=== PATIENT | male | born 1990 | race Caucasian/White ===

== ENCOUNTER 2017-08-30 13:11 | Emergency (ER) | payer SELFPAY ==
[~2017-08-30] VITALS: Ht 188 cm; Wt 82.6 kg
[~2017-08-30 13:11] MED LIST: AMOXICILLIN500 MG PO; AUGMENTIN875 MG PO; ULTRAM50 MG PO
[2017-08-30 13:52] LABS: BASOPHIL COUNT 0.1 K/uL (0-0.1); EOSINOPHIL COUNT 0.3 K/uL (0-0.3); HEMATOCRIT 42.4 % (38.0-50.0); IMMATURE GRANULOCYTE (%) 0.3 % (0.0-0.7); INSTRUMENT ABS NEUTROPHIL CT 3.7 K/uL; LYMPHOCYTE COUNT 2.6 K/uL (1.0-2.8); MCV 88.3 FL (86-99); MEAN PLAT.VOLUME 9.3 uM^3 (9.0-12.4); MONOCYTE (%) 8.8 % (3-12); MONOCYTE COUNT 0.6 K/uL (0-0.8); NEUTROPHIL (%) 51.1 % (45-76); NEUTROPHIL COUNT 3.7 K/uL (1.8-6.4); PLATELET COUNT 277 K/uL (156-360); RBC DIS.WIDTH-CV 12.1 % (11.8-14.6); RBC DIS.WIDTH-SD 39.3 % (39-53); WHITE BLOOD COUNT 7.3 K/uL (4.1-10.2)
[2017-08-30 14:03] LABS: CHLORIDE 106 mEq/L (99-109); POTASSIUM 4.1 mEq/L (3.7-5.4); SODIUM 138 mEq/L (136-147)
[2017-08-30 14:05] LABS: GLUCOSE 103 mg/dL (70-99)
[2017-08-30 14:06] LABS: ANION GAP 7 MEQ/L (2-14)
[2017-08-30 14:07] LABS: TOTAL BILIRUBIN 0.4 mg/dL (0.0-1.0)
[2017-08-30 14:09] LABS: ALKALINE PHOSPHATASE 96 IU/L (3-129); GFR ESTIMATE (CALCULATED) > 59 mL/min/
[2017-08-30 14:10] LABS: UREA NITROGEN (BUN) 14 mg/dL (9-23)
[2017-08-30 14:12] LABS: LIPASE 18 U/L (1.0-51.0)
[2017-08-30 14:26] LABS: ADD MIUA? NO; BILIRUBIN NEGATIVE; BLOOD NEGATIVE; COLOR YELLOW ((YELLOW)); GLUCOSE (STRIP) NEGATIVE; KETONES NEGATIVE; LEUKOCYTES NEGATIVE; NITRITE NEGATIVE; PROTEIN (STRIP) NEGATIVE; SPECIFIC GRAVITY 1.014 (1.000-1.030); UROBILINOGEN 0.2 MG/DL (0.2-1.0)
[2017-08-30] MEDS ORDERED: MOTRIN600 MG PO (14:57)
[2017-08-30 15:08] VITALS: BP 130/70
== END 2017-08-30 15:11 | disposition home or self-care (01) ==
LOC: EME 13:11
PROVIDERS: Physician Assistant
DX: R10.31 Right lower quadrant pain (principal); J45.909 Unspecified asthma, uncomplicated; F17.200 Nicotine dependence, unspecified, uncomplicated; Z88.8 Allergy status to other drugs, medicaments and biological substances
CPT/HCPCS: 74176; 80053; 81003; 83690; 85025; 99281; 99284

== ENCOUNTER 2018-02-17 20:49 | Emergency (ER) | payer SELFPAY ==
[~2018-02-17] VITALS: Ht 188 cm; Wt 82.1 kg
[~2018-02-17 20:49] MED LIST changes: +MOTRIN600 MG PO
[2018-02-17] MEDS ORDERED: ULTRAM50 MG PO (21:35)
[2018-02-17] MEDS ORDERED: MOTRIN600 MG PO (21:35)
[2018-02-17] MEDS ORDERED: PEN-VEE K,VEET500 MG PO (21:35)
[2018-02-17 22:08] VITALS: BP 149/93
== END 2018-02-17 22:09 | disposition home or self-care (01) ==
LOC: EME 20:49 → EXP 20:49
DX: K02.9 Dental caries, unspecified (principal); F17.200 Nicotine dependence, unspecified, uncomplicated; Z88.8 Allergy status to other drugs, medicaments and biological substances
CPT/HCPCS: 99281; 99284